=== PATIENT | male | born 1955 | race American Indian/Alaskan Native ===

== ENCOUNTER 2018-09-09 14:55 | Inpatient (IN) | payer MEDICAID, OTHER ==
--- NOTE | 2018-09-09 17:01 | ED PDOC ---
Arrival/HPI - General Chief Complaint: Back Pain Time Seen by Provider: 09/09/18 14:58 Historian: Patient - History of Present Illness Narrative History of Present Illness (Text): 09/09/18 16:58 63-year-old male presents today with a 3-month history of lower back pain. Patient denies any recent trauma or injury. Patient states he has been having the pain that is been gradually increasing for the past 3 months. He has been t aking Tylenol and Advil at home without improvement in the symptoms. Patient states the pain has been going into the legs bilaterally. He denies numbness weakness or tingling in the extremities. He denies saddle paresthesias. He denies fevers or chills. He denies abdominal pain. He denies dysuria or urinary frequency. He denies bladder or bowel incontinence. Patient denies chest pain or shortness of breath. Patient states he has a prior history of back surgery many years ago in [place]. Patient states the pain in the lower back is not midline. He states the pain is on each sides of the back and radiates into the leg to the knees. Past Medical History - Provider Review Nursing Documentation Reviewed: Yes - Travel History Have you recently traveled outside US w/in the past 3 mons?: No - Infectious Disease Hx of Infectious Diseases: None - Psychiatric Hx Substance Use: No - Surgical History Other/Comment: back sx - Anesthesia Hx Anesthesia: Yes Hx Anesthesia Reactions: No Hx Malignant Hyperthermia: No Family/Social History - Physician Review Nursing Documentation Reviewed: Yes Family/Social History: Unknown Family HX Smoking Status: Never Smoked Hx Alcohol Use: No Hx Substance Use: No Allergies/Home Meds Allergies/Adverse Reactions: Allergies No Known Allergies Allergy (Verified 09/09/18 15:05) Home Medications: Home Meds Medication Instructions Recorded Confirmed No Known Home Med 09/09/18 09/09/18 Review of Systems - Review of Systems Constitutional: absent: Fatigue, Fevers Respiratory: absent: SOB, Cough Cardiovascular: absent: Chest Pain, Palpitations Gastrointestinal: absent: Abdominal Pain, Constipation, Diarrhea, Nausea, Vomiting Genitourinary Male: absent: Dysuria, Frequency, Hematuria, Urinary Output Changes Musculoskeletal: Back Pain. absent: Arthralgias, Neck Pain Skin: absent: Rash, Pruritis Neurological: absent: Headache, Dizziness Psychiatric: absent: Anxiety, Depression, Suicidal Ideation Physical Exam Vital Signs Reviewed: Yes Vital Signs Temp Pulse Resp BP Pulse Ox 09/09/18 15:02 98.7 F 80 19 158/83 H 96 Temperature: Afebrile Blood Pressure: Hypertensive Pulse: Regular Respiratory Rate: Normal Appearance: Positive for: Well-Appearing, Non-Toxic, Comfortable Pain Distress: None Mental Status: Positive for: Alert and Oriented X 3 - Systems Exam Head: Present: Atraumatic Mouth: Present: Moist Mucous Membranes Neck: Present: Normal Range of Motion Respiratory/Chest: Present: Clear to Auscultation, Good Air Exchange. No: Respiratory Distress, Accessory Muscle Use Cardiovascular: Present: Regular Rate and Rhythm, Normal S1, S2. No: Murmurs Abdomen: No: Tenderness, Distention, Rebound, Guarding Back: Present: Normal Inspection, Paraspinal Tenderness (+ minimal bilateral paraspinal tenderness). No: CVA Tenderness, Midline Tenderness Upper Extremity: Present: Normal Inspection Lower Extremity: Present: Normal Inspection, NORMAL PULSES, Normal ROM, Temperature Abnormalties, Neurovascularly Intact, Capillary Refill < 2 s. No: CALF TENDERNESS Neurological: Present: GCS=15, Motor Func Grossly Intact, Normal Sensory Function, Gait Normal Skin: Present: Warm, Dry, Normal Color. No: Rashes Psychiatric: Present: Alert, Oriented x 3 Medical Decision Making ED Course and Treatment: 09/09/18 17:04 63yr old male with 3 month history of low back pain radiating to the proximal legs bilaterally. pt given toradol and flexeril. 09/09/18 18:47 received a call from the radiologist dr. Renteria; states CT is concerning for osteomyelitis; she will send CT to [facility] for reading. cbc; wnl cmp: wnl UA: pending blood cultures pending [place] rad reading ct LS spine: There is advanced hypertrophic and degenerative change of the lower lumbar spine with disc space narrowing chronic disc disease at multiple levels. There is grade 1 anterolisthesis at the L4-L5 level with marked narrowing of the disc space at the L4-L5 level. There is anterior angulation of the L4 vertebral body in relation to the L5 vertebral body. There is bone sclerosis of the vertebral body endplates. The possibility of discitis at this level may be considered. Postsurgical changes with laminectomy defects are seen at the L3, L4 and L5 levels. There is advanced arthritic change within the apophyseal joints at the L3-L4 L4-L5 and L5-S1 levels. Impression: Advanced diffuse hypertrophic and degenerative change. Chronic disc disease at multiple levels lumbar spine. Grade 1 anterolisthesis at the L4-L5 level with an irregular appearance of the vertebral body endplates and bone sclerosis involving the endplates. The possibility of discitis at the L4-L5 level may be considered. Postsurgical changes at the L3-L4 and L5 levels. Correlation with plain radiographs and orthopedic consultation recommended. Electronically signed on September 09, 2018 6:53:43 PM EDT by: Donta Eaton M.D., Certified by [facility], Diagnostic Radiology case discussed with dr. trevizo; accepts admission for osteomyelitis and back pain. impression; osteomyelitis of vertebrae vs discitis, back pain Admit to [facility] 09/09/18 19:12 - RAD Interpretation Radiology Orders: 09/09/18 16:04 LUMBAR SPINE W/O CONTRAST [CT] Stat - Medication Orders Current Medication Orders: Discontinued Medications Cyclobenzaprine HCl (Flexeril) 10 mg PO STAT STA Stop: 09/09/18 16:07 Last Admin: 09/09/18 16:37 Dose: Not Given Non-Admin Reason: Patient Refused Ketorolac Tromethamine (Toradol) 60 mg IM STAT STA Stop: 09/09/18 16:06 Last Admin: 09/09/18 16:36 Dose: 60 mg MAR Pain Assessment Document 09/09/18 16:36 [facility] (Rec: 09/09/18 16:37 [id number]) Pain Reassessment Is this a pain reassessment? No Sleep Is patient sleeping during reassessment? No Presence of Pain Presence of Pain Yes Pain Scale Used Protocol: PSCALES Pain Scale Used Numeric Location Pain Location Body Site Back Description Description Constant Intensity of Pain at present 9 Pain Behavior Facial Grimacing Aggravating Factors Changing Position Alleviating Factors/Management Medication Techniques Alleviating Factors Medication IM Administration Charges Document 09/09/18 16:36 [email or web address] (Rec: 09/09/18 16:37 [id number]) Injection Site MAR Injection Site Left Deltoid Charges for Administration # of IM Administrations 1 Disposition/Present on Arrival - Present on Arrival Any Indicators Present on Arrival: No History of DVT/PE: No History of Uncontrolled Diabetes: No Urinary Catheter: No History of Decub. Ulcer: No History Surgical Site Infection Following: None - Disposition Have Diagnosis and Disposition been Completed?: Yes Diagnosis: Back pain, Osteomyelitis, Discitis Disposition: HOSPITALIZED Disposition Time: 18:49 Patient Plan: Admission Patient Problems: Current Active Problems Problem Status Onset Back pain Acute Osteomyelitis Acute Condition: FAIR Referrals: PCP,NO [Primary Care Provider] - Follow up with primary Forms: nuMVC (Palestinian)
[2018-09-09] MEDS ORDERED: Vancomycin 1gm in NS 250ml 1 GM/250 ML BAG IVPB STA (18:15)
[2018-09-09] MEDS ORDERED: Piperacillin/Tazobact 3.375 gm 100 ML IVPB STA (18:18)
[2018-09-09 19:02] LABS: BASO # 0.02 K/mm3 (0.0-2.0); BASO % 0.2 % (0.0-3.0); EOS # 0.1 (0.0-0.7); EOS % 1.7 % (1.5-5.0); LYMPH # 2.3 (1.2-3.4); MEAN CELL VOLUME 85.2 fl (80.0-105.0); MEAN CORPUSCULAR HEMOGLOBIN 28.3 pg (25.0-35.0); MEAN CORPUSCULAR HGB CONC 33.2 g/dl (31.0-37.0); MEAN PLATELET VOLUME 10.5 fl (7.0-11.0); MONO # 0.6 (0.1-0.6); RBC 4.6 10^6/uL (3.5-6.1); RED CELL DISTRIBUTION WIDTH 13.1 % (11.5-14.5); WHITE BLOOD COUNT 8.2 10^3/uL (4.5-11.0)
[2018-09-09 19:09] LABS: INR 1.06; PARTIAL THROMBOPLASTIN TIME 30.7 Seconds (26.9-38.3); PROTHROMBIN TIME 11.8 SECONDS (9.4-12.5)
[2018-09-09 19:12] LABS: ALB/GLOB RATIO 1.2 (1.1-1.8); ALBUMIN 4.1 g/dL (3.0-4.8); ALT/SGPT 26 U/L (7-56); AST/SGOT 22 U/L (17-59); BLOOD UREA NITROGEN 14 mg/dL (7-21); CALCIUM 8.9 mg/dL (8.4-10.5); GFR NON-AFRICAN AMERICAN > 60
[2018-09-09] MEDS ORDERED: Morphine 2 mg/ml ISec IVP PRN (21:29)
--- NOTE | 2018-09-09 22:09 | CP.PCM.HP ---
<Fahad Almazan - Last Filed: 09/10/18 05:21> History of Present Illness - History of Present Illness History of Present Illness: H&P for hospitalist service Chief complaint: Back pain for the past few weeks HPI: Patient is a 63 Burmese Lao speaking male with no significant past medical history presenting with a history of back pain which began a few weeks prior. Patient is currently visiting from [place] to visit his daughter for Ramadan. Patient states the pain is in his lower back and extends to his thighs bilaterally. Patient states the pain is improved when he leans forwards however is exacerbated with standing. Rates the pain 8/10 without any associated urinary/bowel incontinence, saddle anesthesia, numbness or tingling in lower extremities. Patient also denies fevers, chills, dizziness, loss of balance, headaches, weight loss, night sweats, cough. Patient history was obtained with Dr. Snider who speaks kiswahili. PMD: In [place] Allergies: NKDA Surgical Hx: denies Family Hx: non contributory Medications: denies Present on Admission - Present on Admission Any Indicators Present on Admission: No Review of Systems - Review of Systems All systems: reviewed and no additional remarkable complaints except (as mentioned in HPI) Past Patient History - Infectious Disease Hx of Infectious Diseases: None - Past Social History Smoking Status: Never Smoked - PSYCHIATRIC Hx Substance Use: No - SURGICAL HISTORY Other/Comment: back sx - ANESTHESIA Hx Anesthesia: Yes Hx Anesthesia Reactions: No Hx Malignant Hyperthermia: No Meds Allergies/Adverse Reactions: Allergies Allergy/AdvReac Type Severity Reaction Status Date / Time No Known Allergies Allergy Verified 09/09/18 15:05 Physical Exam - Constitutional Appears: Non-toxic, No Acute Distress - Head Exam Head Exam: ATRAUMATIC, NORMAL INSPECTION, NORMOCEPHALIC - Eye Exam Eye Exam: EOMI, Normal appearance - ENT Exam ENT Exam: Mucous Membranes Moist - Neck Exam Neck exam: Positive for: Normal Inspection - Respiratory Exam Respiratory Exam: Clear to Auscultation Bilateral, NORMAL BREATHING PATTERN - Cardiovascular Exam Cardiovascular Exam: REGULAR RHYTHM, +S1, +S2 - GI/Abdominal Exam GI & Abdominal Exam: Normal Bowel Sounds, Soft - Extremities Exam Extremities exam: Positive for: normal inspection - Back Exam Back exam: NORMAL INSPECTION - Neurological Exam Neurological exam: Alert, CN II-XII Intact, Oriented x3 - Psychiatric Exam Psychiatric exam: Normal Affect, Normal Mood - Skin Skin Exam: Normal Color, Warm Results - Vital Signs Recent Vital Signs: Last Vital Signs Temp 98.7 F 09/09/18 15:02 Pulse 80 09/09/18 15:02 Resp 19 09/09/18 15:02 BP 158/83 H 09/09/18 15:02 Pulse Ox 96 09/09/18 15:02 - Labs Result Diagrams: 09/09/18 18:54 09/09/18 18:54 Labs: Laboratory Results - last 24 hr 09/09/18 09/09/18 09/09/18 18:54 18:54 18:54 WBC 8.2 RBC 4.60 Hgb 13.0 L Hct 39.2 L MCV 85.2 MCH 28.3 MCHC 33.2 RDW 13.1 Plt Count 243 MPV 10.5 Neut % (Auto) 63.1 Lymph % (Auto) 28.0 [place] % (Auto) 7.0 H Eos % (Auto) 1.7 Baso % (Auto) 0.2 Lymph # (Auto) 2.3 [place] # (Auto) 0.6 Eos # (Auto) 0.1 Baso # (Auto) 0.02 Absolute Neuts (auto) 5.15 PT 11.8 INR 1.06 APTT 30.7 Sodium 144 Potassium 4.4 Chloride 106 Carbon Dioxide 26 Anion Gap 16 BUN 14 Creatinine 0.9 Est GFR ( Amer) > 60 Est GFR (Non-Af Amer) > 60 Random Glucose 96 Calcium 8.9 Total Bilirubin 0.7 AST 22 ALT 26 Alkaline Phosphatase 78 Total Protein 7.6 Albumin 4.1 Globulin 3.5 Albumin/Globulin Ratio 1.2 Assessment & Plan - Assessment and Plan (Free Text) Assessment: 63 tristanian male with no significant past medical history presenting with back pain found to have possible discitis at L4-L5 Plan: Back pain secondary to discitis vs. lumbar stenosis -ESR, CRP -Patient received zosyn and vanc in ED -Blood and urine cultures received -Continue with pain management for now: flexiril, lidocaine, morphine -Consult infectious disease -Lumbar Spine CT reveals discitis in L4-L5 as per ED staff Radiologist stated osteomyelitis is a possibility, will await official read -Afebrile, no leukocytosis present will continue to monitor off antibiotics at this time Case discussed with Dr. Snider <Rachna Snider - Last Filed: 09/10/18 19:48> Results - Vital Signs Recent Vital Signs: Last Vital Signs Temp 98.2 F 09/10/18 08:32 Pulse 87 09/10/18 08:32 Resp 18 09/10/18 08:32 BP 149/73 09/10/18 08:32 Pulse Ox 100 09/10/18 08:32 - Labs Result Diagrams: 09/10/18 05:15 09/10/18 05:15 Labs: Laboratory Results - last 24 hr 09/09/18 09/09/18 09/09/18 18:54 18:54 18:54 WBC RBC Hgb Hct MCV MCH MCHC RDW Plt Count MPV Neut % (Auto) Lymph % (Auto) [place] % (Auto) Eos % (Auto) Baso % (Auto) Lymph # (Auto) [place] # (Auto) Eos # (Auto) Baso # (Auto) Absolute Neuts (auto) ESR 30 H Sodium Potassium Chloride Carbon Dioxide Anion Gap BUN Creatinine Est GFR ( Amer) Est GFR (Non-Af Amer) Random Glucose Calcium Phosphorus 3.1 Magnesium 2.1 Total Bilirubin AST ALT Alkaline Phosphatase C-Reactive Protein C-React Prot High Sens 7.54 H Total Protein Albumin Globulin Albumin/Globulin Ratio 09/10/18 09/10/18 09/10/18 05:15 05:15 07:00 WBC 7.7 RBC 4.20 Hgb 11.8 L Hct 35.9 L MCV 85.5 MCH 28.1 MCHC 32.9 RDW 13.2 Plt Count 220 MPV 11.2 H Neut % (Auto) 61.5 Lymph % (Auto) 26.7 [place] % (Auto) 8.9 H Eos % (Auto) 2.6 Baso % (Auto) 0.3 Lymph # (Auto) 2.1 [place] # (Auto) 0.7 H Eos # (Auto) 0.2 Baso # (Auto) 0.02 Absolute Neuts (auto) 4.75 ESR Sodium 142 Potassium 4.1 Chloride 106 Carbon Dioxide 28 Anion Gap 12 BUN 19 Creatinine 1.0 Est GFR ( Amer) > 60 Est GFR (Non-Af Amer) > 60 Random Glucose 90 Calcium 8.4 Phosphorus Magnesium Total Bilirubin 0.4 AST 22 ALT 20 Alkaline Phosphatase 63 C-Reactive Protein 11.20 H C-React Prot High Sens Total Protein 6.6 Albumin 3.5 Globulin 3.1 Albumin/Globulin Ratio 1.1 Attending/Attestation - Attestation I have personally seen and examined this patient.: Yes I have fully participated in the care of the patient.: Yes I have reviewed all pertinent clinical information: Yes Notes (Text): 09/10/18 19:47 Seen and examined. Has prgressive LBP for 3 month worsens with movement, but resolves with rest ? spinal stenosis S/S in addition to Discitis seen on CT as above.
[2018-09-10 00:01] VITALS: BMI 40.7
[2018-09-10 06:58] LABS: ALB/GLOB RATIO 1.1 (1.1-1.8); ALBUMIN 3.5 g/dL (3.0-4.8); ALT/SGPT 20 U/L (7-56); AST/SGOT 22 U/L (17-59); BLOOD UREA NITROGEN 19 mg/dL (7-21); CALCIUM 8.4 mg/dL (8.4-10.5); GFR NON-AFRICAN AMERICAN > 60
[2018-09-10 07:09] LABS: BASO # 0.02 K/mm3 (0.0-2.0); BASO % 0.3 % (0.0-3.0); EOS # 0.2 (0.0-0.7); EOS % 2.6 % (1.5-5.0); HEMOGLOBIN 11.8 g/dL (14.0-18.0); LYMPH # 2.1 (1.2-3.4); LYMPH % 26.7 % (22.0-35.0); MEAN CELL VOLUME 85.5 fl (80.0-105.0); MEAN CORPUSCULAR HEMOGLOBIN 28.1 pg (25.0-35.0); MEAN CORPUSCULAR HGB CONC 32.9 g/dl (31.0-37.0); MEAN PLATELET VOLUME 11.2 fl (7.0-11.0); MONO # 0.7 (0.1-0.6); MONO % 8.9 % (1.0-6.0); RBC 4.2 10^6/uL (3.5-6.1); RED CELL DISTRIBUTION WIDTH 13.2 % (11.5-14.5); WHITE BLOOD COUNT 7.7 10^3/uL (4.5-11.0)
--- NOTE | 2018-09-10 09:38 | CON ---
DATE OF CONSULTATION: 09/10/2018 The patient is in bed. CHIEF COMPLAINT: Back pain times several weeks. HISTORY OF PRESENT ILLNESS: This is a 63-year-old male, who is originally from [place], who speaks Telugu, and states that he has been fine. He has been having back pain, lower back, radiation down his leg. He denies any fevers, any chills, and denies any chest pain, shortness of , pain, or cough. No weight loss. No abdominal pain, diarrhea, or constipation, and he says that the pain radiates down to his legs. PAST MEDICAL HISTORY: Noncontributory except for morbid obesity with a BMI of 41. PAST SURGICAL HISTORY: The patient did have back surgery years ago. ALLERGIES: HE HAS NO KNOWN ALLERGIES. SOCIAL HISTORY: He does not smoke or drink. MEDICATIONS: He takes no medications at home. PHYSICAL EXAMINATION: GENERAL: He is in bed, in no acute distress. He is ambulating. No local focal weakness. VITAL SIGNS: The patient's temperature is 98, heart rate of 80, respiratory rate of 19, blood pressure is 149/73. HEENT: Examination of HEENT is unremarkable. NECK: Supple. LUNGS: Have decreased breath sounds. HEART: Normal S1, S2. ABDOMEN: Soft, nontender. MUSCULOSKELETAL: Examination of back, there is no focal tenderness, point tenderness at all. NEUROLOGIC: The patient is awake and alert. Motor function is 5/5 and no sensory deficiencies and no motor deficiencies. LABORATORY DATA: Laboratory examination reveals a white count of 8.2, hemoglobin of 13, sed rate is 30, platelets of 243. Chemistries are all entirely normal LFTs and liver, and normal bicarb. The patient did have a lumbar CT, which is vertebral osteomyelitis and diskitis. ASSESSMENT AND PLAN: This is a 63-year-old male from [place], who states he has never had exposure to tuberculosis. He speaks Telugu, now presenting with vertebral osteomyelitis and diskitis by preliminary report and on the CAT scan, as per nursing, would hold off any antibiotics as he has no focal findings, no fevers and chills, and no symptoms of sepsis. We will order an MRI of the spine. CAT scan of the abdomen and pelvis, rule out any psoas muscle involvement and consider Loki's disease, tuberculosis. We will look at the chest x-ray or CAT scan of the chest, and we will order culture results and HIV test and QuantiFERON testing, blood cultures, sed rate, and C-reactive protein. Recommend Dr. Christopher Keys, invasive radiology, to review the CAT scan and the MRI once it is done for possible invasive radiology biopsy, and we will follow with you. Lobo Webber MD
[2018-09-10] MEDS: Lidocaine 5% Patch TD SCH (10:44)
[2018-09-10] MEDS ORDERED: Iohexol 350 MG/100 ML VIAL ONE (11:10)
--- NOTE | 2018-09-10 11:57 | CT ---
Date of service: 09/10/2018 PROCEDURE: CT Chest, Abdomen and Pelvis with and without intravenous contrast HISTORY: r/o TB COMPARISON: None available. TECHNIQUE: IV dose administered: 100 cc of Omni 350 Radiation dose: Total exam DLP = 3024.18 mGy-cm. This CT exam was performed using one or more of the following dose reduction techniques: Automated exposure control, adjustment of the mA and/or kV according to patient size, and/or use of iterative reconstruction technique. FINDINGS: CT CHEST WITH CONTRAST: LUNGS: Clear. No nodule, mass or consolidation. MEDIASTINUM: Unremarkable. Normal caliber aorta and pulmonary arterial trunk. No aortic dissection. Normal size heart. LYMPH NODES: Unremarkable. PLEURA: Unremarkable. No pneumothorax. No pleural fluid. BONES: Unremarkable. OTHER FINDINGS: None. CT ABDOMEN AND PELVIS: LIVER: Unremarkable. No gross lesion or ductal dilatation. GALLBLADDER AND BILE DUCTS: Unremarkable. PANCREAS: Unremarkable. No gross lesion or ductal dilatation. SPLEEN: Unremarkable. ADRENALS: Unremarkable. No mass. KIDNEYS AND URETERS: There is a large staghorn calculus in the right kidney which conforms to the shape of the renal collecting system in the lower pole. There is no hydronephrosis. The left kidney is unremarkable VASCULATURE: No aortic atherosclerotic calcification or mural plaque present. Unremarkable. No aortic aneurysm. BOWEL: Unremarkable. No obstruction. No gross mural thickening. APPENDIX: Normal appendix. PERITONEUM: Unremarkable. No free fluid. No free air. LYMPH NODES: Unremarkable. No enlarged lymph nodes. BLADDER: Unremarkable. REPRODUCTIVE: Unremarkable. BONES: Severe degenerative changes are seen in the lower lumbar spine OTHER FINDINGS: None. IMPRESSION: No acute findings. No evidence of tuberculosis
--- NOTE | 2018-09-10 13:39 | CT ---
Date of service: 09/09/2018 PROCEDURE: CT Lumbar Spine without contrast HISTORY: back pain x 3 months COMPARISON: None available. TECHNIQUE: Axial computed tomography images were obtained of the lumbar spine without the use of intravenous contrast. Coronal and sagittal reformatted images were created and reviewed. Radiation dose: Total exam DLP = 2065.42 mGy-cm. This CT exam was performed using one or more of the following dose reduction techniques: Automated exposure control, adjustment of the mA and/or kV according to patient size, and/or use of iterative reconstruction technique. FINDINGS: VERTEBRAE: Unremarkable. No fracture. Normal alignment. DISCS/SPINAL CANAL/NEURAL FORAMINA: L1-2: Unremarkable. L2-3: Severe disc and facet degeneration with mild stenosis L3-4: Disc degeneration. Previous laminectomy. L4-5: Severe degenerative changes with anterior subluxation of L4 over L5. Previous laminectomy. Severe facet arthropathy. L5-S1: Unremarkable. PARASPINAL SOFT TISSUES: Unremarkable. OTHER FINDINGS: The report concurs with the preliminary [facility] report IMPRESSION: Severe degenerative changes in lower lumbar spine. Previous laminectomy. No acute compression fracture
--- NOTE | 2018-09-10 14:23 | CP.PCM.PN ---
<Carmel Atkinson - Last Filed: 09/10/18 14:19> Subjective - Date & Time of Evaluation Date of Evaluation: 09/10/18 Time of Evaluation: 10:30 - Subjective Subjective: Carmel Atkinson PGY1 Medicine Progress Note for Hospital Patient seen and examined at bedside this morning. No acute events reported overnight. Presently, patient denies any back pain and endorses left hip pain radiating down his left leg. Denies fevers, CP, SOB, nausea, vomiting, numbness, tingling, weakness and urinary complaints. Objective - Vital Signs/Intake and Output Vital Signs (last 24 hours): Temp Pulse Resp BP Pulse Ox 98.2 F 87 18 149/73 100 09/10/18 08:32 09/10/18 08:32 09/10/18 08:32 09/10/18 08:32 09/10/18 08:32 Intake and Output: 09/10/18 09/10/18 06:59 18:59 Intake Total 0 Balance 0 - Medications Medications: Current Medications Cyclobenzaprine HCl (Flexeril) 10 mg PO TID [facility] Last Admin: 09/10/18 10:58 Dose: Not Given Lidocaine (Lidoderm) 1 ea TD DAILY [facility] Last Admin: 09/10/18 10:44 Dose: 1 ea Morphine Sulfate (Morphine) 1 mg IVP Q4H PRN PRN Reason: Pain, severe (8-10) - Labs Labs: 09/10/18 05:15 09/10/18 05:15 PT 11.8 SECONDS (9.4-12.5) 09/09/18 18:54 INR 1.06 09/09/18 18:54 APTT 30.7 Seconds (26.9-38.3) 09/09/18 18:54 Physical Exam - Constitutional Appears: Non-toxic, No Acute Distress - Head Exam Head Exam: ATRAUMATIC, NORMAL INSPECTION, NORMOCEPHALIC - Eye Exam Eye Exam: EOMI, Normal appearance - ENT Exam ENT Exam: Mucous Membranes Moist - Neck Exam Neck exam: Positive for: Normal Inspection - Respiratory Exam Respiratory Exam: Clear to Auscultation Bilateral, NORMAL BREATHING PATTERN - Cardiovascular Exam Cardiovascular Exam: REGULAR RHYTHM, +S1, +S2 - GI/Abdominal Exam GI & Abdominal Exam: Normal Bowel Sounds, Soft. absent: guarding, rigidity - Extremities Exam Extremities exam: Positive for: normal inspection. Moving all extremities spontaneously - Back Exam Back exam: NORMAL INSPECTION. L4-L5 tenderness noted with deep palpation - Neurological Exam Neurological exam: Alert, CN II-XII Intact, Oriented x3. No focal motor or sensory deficits appreciated - Skin Skin Exam: Normal Color, Warm Assessment and Plan - Assessment and Plan (Free Text) Assessment: 63 montenegrin male with no significant past medical history presenting with back pain. Plan: Left Hip Pain -consider discitis vs. lumbar stenosis vs severe degenerative changes -afebrile, no WBC count noted -ESR elevated at 30 -CRP elevated at 11.2 -monitor off of antibiotics as per ID -Blood and urine cultures received -Continue flexiril, lidocaine, morphine -ID on consult, Dr. Puentes -MRI spinal cancal lumbar pending -Lumbar Spine CT shows severe degenerative changes in lower lumbar spine, p revious laminectomy. No acute compression fracture -CTAP shows no acute findings, no evidence of TB -HIV, quantiferon pending Patient seen and case discussed with attending, Dr. Carl <Axel Carl - Last Filed: 09/11/18 13:07> Objective - Vital Signs/Intake and Output Vital Signs (last 24 hours): Temp Pulse Resp BP Pulse Ox 98.5 F 77 20 156/80 H 98 09/11/18 08:20 09/11/18 08:20 09/11/18 08:20 09/11/18 08:20 09/11/18 08:20 Intake and Output: 09/11/18 09/11/18 06:59 18:59 Intake Total 0 Balance 0 - Medications Medications: Current Medications Cyclobenzaprine HCl (Flexeril) 10 mg PO TID [facility] Last Admin: 09/11/18 10:18 Dose: Not Given Lidocaine (Lidoderm) 1 ea TD DAILY [facility] Last Admin: 09/11/18 10:15 Dose: 1 ea Morphine Sulfate (Morphine) 1 mg IVP Q4H PRN PRN Reason: Pain, severe (8-10) - Labs Labs: 09/11/18 05:00 09/11/18 05:00 PT 11.8 SECONDS (9.4-12.5) 09/09/18 18:54 INR 1.06 09/09/18 18:54 APTT 30.7 Seconds (26.9-38.3) 09/09/18 18:54 Attending/Attestation - Attestation I have personally seen and examined this patient.: Yes I have fully participated in the care of the patient.: Yes I have reviewed all pertinent clinical information, including history, physical exam and plan: Yes Notes (Text): 09/11/18 13:07 Medical record note made by the resident after discussion with my direction and input after the patient was personally seen and examined by me. I have reviewed the chart and agree that the record accurately reflects by personal performance of the history, physical exam, data review, and medical decision-making, in the course for the patient. I have also personally directed the plan of care.
[2018-09-10] MEDS ORDERED: Gadodiamide 287 MG/ML VIAL (15ML) IV ONE (15:25)
[2018-09-11 06:50] LABS: BASO # 0.02 K/mm3 (0.0-2.0); BASO % 0.3 % (0.0-3.0); EOS # 0.2 (0.0-0.7); EOS % 3.8 % (1.5-5.0); HEMOGLOBIN 12.2 g/dL (14.0-18.0); LYMPH % 31.8 % (22.0-35.0); MEAN CELL VOLUME 85.6 fl (80.0-105.0); MEAN CORPUSCULAR HEMOGLOBIN 28.7 pg (25.0-35.0); MEAN CORPUSCULAR HGB CONC 33.5 g/dl (31.0-37.0); MEAN PLATELET VOLUME 10.8 fl (7.0-11.0); MONO # 0.5 (0.1-0.6); MONO % 7.9 % (1.0-6.0); RBC 4.25 10^6/uL (3.5-6.1); RED CELL DISTRIBUTION WIDTH 13.3 % (11.5-14.5); WHITE BLOOD COUNT 6.3 10^3/uL (4.5-11.0)
[2018-09-11 06:53] LABS: ALB/GLOB RATIO 1.1 (1.1-1.8); ALBUMIN 3.7 g/dL (3.0-4.8); ALT/SGPT 22 U/L (7-56); AST/SGOT 23 U/L (17-59); BLOOD UREA NITROGEN 17 mg/dL (7-21); CALCIUM 8.9 mg/dL (8.4-10.5); GFR NON-AFRICAN AMERICAN > 60
[2018-09-11] MEDS: Lidocaine 5% Patch TD SCH (10:15)
[2018-09-11 10:42] LABS: URINE BILIRUBIN NEGATIVE (NEGATIVE); URINE BLOOD LARGE (NEGATIVE); URINE GLUCOSE (UA) NEGATIVE (NEGATIVE); URINE LEUKOCYTE ESTERASE TRACE Leu/uL (NEGATIVE); URINE PROTEIN 30 mg/dL (<30 mg/dL); URINE UROBILINOGEN 0.2 E.U./dL (<1 E.U./dL)
[2018-09-11 10:49] LABS: URINE APPEARANCE SL CLOUDY (CLEAR); URINE COLOR YELLOW (YELLOW)
[2018-09-11 11:03] LABS: URINE RBC TNTC /hpf (0-2)
--- NOTE | 2018-09-11 11:03 | PN ---
DATE: 09/11/2018 SUBJECTIVE: The patient is in seen earlier, still with back pain. No fevers, no chills. No weakness. His motor function is fine. His sensation is fine. PHYSICAL EXAMINATION VITAL SIGNS: Temperature is 98, blood pressure is 150/60, respiratory rate of 18. HEENT: Unremarkable. NECK: Supple. LUNGS: Have decreased breath sounds. HEART: Normal S1, S2. ABDOMEN: Soft, nontender. LABORATORY EXAMINATION: Reveals a white count of 6.3, hemoglobin of 12. Coagulation is noted. Chemistries are noted with a C-reactive protein of 11. Microbiology reveals the blood cultures are negative. The patient had a CAT scan of the abdomen and pelvis and CAT scan of the chest. CAT of the chest is clear. No nodules, no masses, no consolidation. CAT scan of the abdomen and pelvis is unremarkable. No evidence of psoas muscle abscess. There is a large staghorn calculus in the right kidney conforms to the shape of the renal collecting system . There is no hydronephrosis. The left kidney is unremarkable. The patient did have an MRI of the spine, the results are pending. The patient's urinalysis is not done. We will order a stat urinalysis and urine culture, recommend a Urology consultation regarding the staghorn calculus. ASSESSMENT AND PLAN: This is a 63-year-old male who is originally from [place] who is admitted now with back pain and questionable vertebral osteomyelitis and diskitis by the CT. There is a staghorn calculus which may be contributing to his back pain. Recommend a Urology consultation, awaiting for results of the MRI of the spine and Dr. Christopher Keys's input regarding the CAT scan of the lumbar spine and the possibility of IR directed vertebral and disc biopsy. final reading of the CAT scan shows as previous laminectomy and degenerative changes. We will check on the urinalysis, Urology consultation, results of the MRI of the spine, from Dr. Christopher Keys, no antibiotics at this point, also order a stat urinalysis and urine culture. Continue to keep the patient off of antibiotics. Lobo Webber MD
[2018-09-11 11:04] LABS: URINE BACTERIA MANY /hpf
[2018-09-11 11:05] LABS: URINE AMORPHOUS SEDIMENT FEW /hpf
--- NOTE | 2018-09-11 12:18 | CP.PCM.PN ---
<Carmel Atkinson - Last Filed: 09/11/18 12:13> Subjective - Date & Time of Evaluation Date of Evaluation: 09/11/18 Time of Evaluation: 08:45 - Subjective Subjective: Carmel Atkinson PGY1 Medicine Progress Note for Hospital Patient seen and examined at bedside this morning. No acute events reported overnight. Patient denies back pain, CP, SOB, fevers, urinary complaints, urinary burning, numbness, tingling, abdominal pain, nausea and vomiting. Objective - Vital Signs/Intake and Output Vital Signs (last 24 hours): Temp Pulse Resp BP Pulse Ox 98.5 F 77 20 156/80 H 98 09/11/18 08:20 09/11/18 08:20 09/11/18 08:20 09/11/18 08:20 09/11/18 08:20 Intake and Output: 09/11/18 09/11/18 06:59 18:59 Intake Total 0 Balance 0 - Medications Medications: Current Medications Cyclobenzaprine HCl (Flexeril) 10 mg PO TID [facility] Last Admin: 09/11/18 10:18 Dose: Not Given Lidocaine (Lidoderm) 1 ea TD DAILY [facility] Last Admin: 09/11/18 10:15 Dose: 1 ea Morphine Sulfate (Morphine) 1 mg IVP Q4H PRN PRN Reason: Pain, severe (8-10) - Labs Labs: 09/11/18 05:00 09/11/18 05:00 PT 11.8 SECONDS (9.4-12.5) 09/09/18 18:54 INR 1.06 09/09/18 18:54 APTT 30.7 Seconds (26.9-38.3) 09/09/18 18:54 Physical Exam - Constitutional Appears: Non-toxic, No Acute Distress - Head Exam Head Exam: ATRAUMATIC, NORMAL INSPECTION, NORMOCEPHALIC - Eye Exam Eye Exam: EOMI, Normal appearance - ENT Exam ENT Exam: Mucous Membranes Moist - Neck Exam Neck exam: Positive for: Normal Inspection - Respiratory Exam Respiratory Exam: Clear to Auscultation Bilateral, NORMAL BREATHING PATTERN - Cardiovascular Exam Cardiovascular Exam: REGULAR RHYTHM, +S1, +S2 - GI/Abdominal Exam GI & Abdominal Exam: Normal Bowel Sounds, Soft. absent: guarding, rigidity - Extremities Exam Extremities exam: Positive for: normal inspection. Moving all extremities spontaneously - Back Exam Back exam: NORMAL INSPECTION. L4-L5 tenderness noted with deep palpation - Neurological Exam Neurological exam: Alert, CN II-XII Intact, Oriented x3. No focal motor or sensory deficits appreciated - Skin Skin Exam: Normal Color, Warm Assessment and Plan - Assessment and Plan (Free Text) Assessment: 63 [place] male with no significant past medical history presenting with back pain. Plan: Left Hip Pain -consider lumbar stenosis vs severe degenerative changes -afebrile, no WBC count noted -ESR elevated at 30 -CRP elevated at 11.2 -monitor off of antibiotics as per ID -Continue flexiril, lidocaine, morphine -ID on consult, Dr. Puentes -lumbar spine MRI pending final read -Lumbar Spine CT shows severe degenerative changes in lower lumbar spine, previous laminectomy. No acute compression fracture -CTAP shows no acute findings, no evidence of TB -HIV, quantiferon pending Right Staghorn calculus -urology on consult, Dr. Jeffries E -denies any urinary complaints at this time -urine culture -blood culture negative for 24 hours Patient seen and case discussed with attending, Dr. Carl <Axel Carl - Last Filed: 09/11/18 13:02> Objective - Vital Signs/Intake and Output Vital Signs (last 24 hours): Temp Pulse Resp BP Pulse Ox 98.5 F 77 20 156/80 H 98 09/11/18 08:20 09/11/18 08:20 09/11/18 08:20 09/11/18 08:20 09/11/18 08:20 Intake and Output: 09/11/18 09/11/18 06:59 18:59 Intake Total 0 Balance 0 - Medications Medications: Current Medications Cyclobenzaprine HCl (Flexeril) 10 mg PO TID [facility] Last Admin: 09/11/18 10:18 Dose: Not Given Lidocaine (Lidoderm) 1 ea TD DAILY [facility] Last Admin: 09/11/18 10:15 Dose: 1 ea Morphine Sulfate (Morphine) 1 mg IVP Q4H PRN PRN Reason: Pain, severe (8-10) - Labs Labs: 09/11/18 05:00 09/11/18 05:00 PT 11.8 SECONDS (9.4-12.5) 09/09/18 18:54 INR 1.06 09/09/18 18:54 APTT 30.7 Seconds (26.9-38.3) 09/09/18 18:54 Attending/Attestation - Attestation I have personally seen and examined this patient.: Yes I have fully participated in the care of the patient.: Yes I have reviewed all pertinent clinical information, including history, physical exam and plan: Yes Notes (Text): 09/11/18 13:02 Medical record note made by the resident after discussion with my direction and input after the patient was personally seen and examined by me. I have reviewed the chart and agree that the record accurately reflects by personal performance of the history, physical exam, data review, and medical decision-making, in the course for the patient. I have also personally directed the plan of care. 63 [place] male with no significant past medical history presenting with back pain was admitted as preliminary CT lumber was concerning for discitis, however official read of Lumbar Spine CT shows severe degenerative changes in lower lumbar spine, previous laminectomy. No acute compression fracture. It does showed large staghorn stone in right kidney. MRI of back reading is pending, no need for antibiotics as per ID if MRI is negative. Urology is consulted for staghorn stone.
--- NOTE | 2018-09-11 13:33 | MRI ---
Date of service: 09/10/2018 PROCEDURE: MR LUMBAR SPINE WITH AND WITHOUT CONTRAST HISTORY: r/o ostemyelitis COMPARISON: None available. TECHNIQUE: Multiecho multiplanar sequences were performed through the lumbar spine with and without the use of intravenous contrast. 15 cc of Omniscan FINDINGS: Vertebral body heights are preserved. Marrow signal unremarkable. Conus medullaris unremarkable at the level of 12 Paraspinal soft tissues are unremarkable. No abnormal enhancement. T12-L1: No disc herniation, spinal canal stenosis or neural foraminal narrowing. L1-2: No disc herniation, spinal canal stenosis or neural foraminal narrowing. L2-3: Severe facet arthropathy and disc bulging with severe stenosis at L2-3 L3-4: Severe facet arthropathy. Laminectomy L4-5: Severe disc degeneration and anterior subluxation and tilt of L4. There has been laminectomy at this level. There is no evidence of discitis or osteomyelitis. L5-S1: No disc herniation, spinal canal stenosis or neural foraminal narrowing. OTHER FINDINGS: None. IMPRESSION: Severe facet arthropathy and disc bulging with severe stenosis at L2-3 Severe disc degeneration and anterior subluxation and tilt of L4. There has been laminectomy at this level. There is no evidence of discitis or osteomyelitis.
[2018-09-12 07:05] LABS: ALB/GLOB RATIO 1.1 (1.1-1.8); ALBUMIN 3.7 g/dL (3.0-4.8); ALT/SGPT 24 U/L (7-56); AST/SGOT 23 U/L (17-59); BLOOD UREA NITROGEN 19 mg/dL (7-21); CALCIUM 8.6 mg/dL (8.4-10.5); GFR NON-AFRICAN AMERICAN > 60
[2018-09-12 07:09] LABS: BASO # 0.03 K/mm3 (0.0-2.0); BASO % 0.4 % (0.0-3.0); EOS # 0.2 (0.0-0.7); EOS % 2.9 % (1.5-5.0); LYMPH # 2.5 (1.2-3.4); LYMPH % 32.2 % (22.0-35.0); MEAN CELL VOLUME 85.3 fl (80.0-105.0); MEAN CORPUSCULAR HEMOGLOBIN 27.9 pg (25.0-35.0); MEAN CORPUSCULAR HGB CONC 32.7 g/dl (31.0-37.0); MEAN PLATELET VOLUME 10.7 fl (7.0-11.0); MONO # 0.5 (0.1-0.6); MONO % 6.1 % (1.0-6.0); RBC 4.3 10^6/uL (3.5-6.1); RED CELL DISTRIBUTION WIDTH 13.3 % (11.5-14.5); WHITE BLOOD COUNT 7.9 10^3/uL (4.5-11.0)
[2018-09-12] MEDS: Lidocaine 5% Patch TD SCH (10:56)
--- NOTE | 2018-09-12 17:19 | CP.PCM.DIS ---
<Sixto Garcia - Last Filed: 09/12/18 17:09> Provider - Provider Date of Admission: 09/09/18 18:45 Attending physician: Swati Carlton MD Primary care physician: NO PRIMARY CARE PROVIDER Consults: 09/10/18 01:06 Infectious Disease Consult Routine Comment: Consulting Provider: Lboo Webber Consulting Physician: Lobo Webber Reason for Consult: discitis, r/o osteomyelitis 09/11/18 12:13 Physician Consult Routine Comment: Consulting Provider: Kvng Jeffries Consulting Physician: Kvng Jeffries Reason for Consult: right staghorn calculus Time Spent in preparation of Discharge (in minutes): 60 Hospital Course - Lab Results Lab Results: Micro Results 09/11/18 10:20 Urine Random Urine Culture - Final No Growth (<1,000 CFU/ML) 09/09/18 20:09 Blood Blood Culture - Preliminary NO GROWTH AFTER 48 HOURS 09/09/18 18:54 Blood Blood Culture - Preliminary NO GROWTH AFTER 48 HOURS Most Recent Lab Values WBC 7.9 10^3/uL (4.5-11.0) D 09/12/18 06:30 RBC 4.30 10^6/uL (3.5-6.1) 09/12/18 06:30 Hgb 12.0 g/dL (14.0-18.0) L 09/12/18 06:30 Hct 36.7 % (42.0-52.0) L 09/12/18 06:30 MCV 85.3 fl (80.0-105.0) 09/12/18 06:30 MCH 27.9 pg (25.0-35.0) 09/12/18 06:30 MCHC 32.7 g/dl (31.0-37.0) 09/12/18 06:30 RDW 13.3 % (11.5-14.5) 09/12/18 06:30 Plt Count 243 10^3/uL (120.0-450.0) 09/12/18 06:30 MPV 10.7 fl (7.0-11.0) 09/12/18 06:30 Neut % (Auto) 58.4 % (50.0-68.0) 09/12/18 06:30 Lymph % (Auto) 32.2 % (22.0-35.0) 09/12/18 06:30 Gooding % (Auto) 6.1 % (1.0-6.0) H 09/12/18 06:30 Eos % (Auto) 2.9 % (1.5-5.0) 09/12/18 06:30 Baso % (Auto) 0.4 % (0.0-3.0) 09/12/18 06:30 Lymph # (Auto) 2.5 (1.2-3.4) 09/12/18 06:30 Gooding # (Auto) 0.5 (0.1-0.6) 09/12/18 06:30 Eos # (Auto) 0.2 (0.0-0.7) 09/12/18 06:30 Baso # (Auto) 0.03 K/mm3 (0.0-2.0) 09/12/18 06:30 Absolute Neuts (auto) 4.60 (1.4-6.5) 09/12/18 06:30 ESR 30 mm/hr (0.00-15.0) H 09/09/18 18:54 PT 11.8 SECONDS (9.4-12.5) 09/09/18 18:54 INR 1.06 09/09/18 18:54 APTT 30.7 Seconds (26.9-38.3) 09/09/18 18:54 Sodium 142 mmol/L (132-148) 09/12/18 06:30 Potassium 4.2 mmol/L (3.6-5.0) 09/12/18 06:30 Chloride 104 mmol/L (98-107) 09/12/18 06:30 Carbon Dioxide 30 mmol/L (21-33) 09/12/18 06:30 Anion Gap 11 (10-20) 09/12/18 06:30 BUN 19 mg/dL (7-21) 09/12/18 06:30 Creatinine 1.2 mg/dl (0.8-1.5) 09/12/18 06:30 Est GFR ( Amer) > 60 09/12/18 06:30 Est GFR (Non-Af Amer) > 60 09/12/18 06:30 Random Glucose 108 mg/dL (70-110) 09/12/18 06:30 Calcium 8.6 mg/dL (8.4-10.5) 09/12/18 06:30 Phosphorus 3.1 mg/dL (2.5-4.5) 09/09/18 18:54 Magnesium 2.1 mg/dL (1.7-2.2) 09/09/18 18:54 Total Bilirubin 0.4 mg/dL (0.2-1.3) 09/12/18 06:30 AST 23 U/L (17-59) 09/12/18 06:30 ALT 24 U/L (7-56) 09/12/18 06:30 Alkaline Phosphatase 66 U/L (38-126) 09/12/18 06:30 C-Reactive Protein 11.20 mg/L (0.0-9.9) H 09/10/18 07:00 C-React Prot High Sens 7.54 mg/L (1.00-3.00) H 09/09/18 18:54 Total Protein 6.9 g/dL (5.8-8.3) 09/12/18 06:30 Albumin 3.7 g/dL (3.0-4.8) 09/12/18 06:30 Globulin 3.2 gm/dL 09/12/18 06:30 Albumin/Globulin Ratio 1.1 (1.1-1.8) 09/12/18 06:30 Urine Color Yellow (YELLOW) 09/11/18 10:20 Urine Appearance Sl cloudy (CLEAR) 09/11/18 10:20 Urine pH 6.0 (4.7-8.0) 09/11/18 10:20 Ur Specific Jenkins >= 1.030 (1.005-1.035) 09/11/18 10:20 Urine Protein 30 mg/dL (<30 mg/dL) H 09/11/18 10:20 Urine Glucose (UA) Negative mg/dL (NEGATIVE) 09/11/18 10:20 Urine Ketones Negative mg/dL (NEGATIVE) 09/11/18 10:20 Urine Blood Large (NEGATIVE) H 09/11/18 10:20 Urine Nitrate Negative (NEGATIVE) 09/11/18 10:20 Urine Bilirubin Negative (NEGATIVE) 09/11/18 10:20 Urine Urobilinogen 0.2 E.U./dL (<1 E.U./dL) 09/11/18 10:20 Ur Leukocyte Esterase Trace Giovanna/uL (NEGATIVE) H 09/11/18 10:20 Urine RBC Tntc /hpf (0-2) H 09/11/18 10:20 Urine WBC 5 - 10 /hpf (0-6) H 09/11/18 10:20 Amorphous Sediment Few /hpf (NONE) 09/11/18 10:20 Urine Bacteria Many /hpf (NONE) 09/11/18 10:20 Urine Other Fiber /hpf 09/11/18 10:20 HIV 1&2 Ag/Ab, 4th Gen Nonreactive (Nonreactive) 09/10/18 07:00 - Hospital Course Hospital Course: Sixto Garcia, PGY-1, Internal Medicine Discharge Summary for Dr. Carlton 63 year old male with no relevant past medical history presented with history of back pain which started a few weeks ago. Patient was visiting [place] to visit daughter for Ramadan. Patient had pain in lower back which extended to thighs bilaterally. Patient's pain improved when he leaned forward however was exacerbated with standing. Patient had no bowel/bladder incontinence, saddle anesthesia, numbness/tingling in lower extremities. Upon admission, Lumbar spine CT showed severe degenerative changes, previous laminectomy. Lumbar MRI showed severe facet arthropathy and disc bulging with severe stenosis L2-L3, severe disc degeneration. No evidence of discitis or osteomyeltitis. PanCT showed no acute findings except for large right sided staghorn calculus. UA was negative for nitrate but positive for leukocyte esterase and had 5-10 WBC. Thus, UTI was doubtful. HIV was negative. ESR and CRP were mildly elevated. Patient was afebrile and had no leukocytosis throughout the admission. Patient received vancomycin and zosyn in the ED and was ordered pain medication of flexeril, morphine which he did not use. He was also prescribed lidoderm patch which he used sparingly. As per Dr. Webber, SAMANTHA, no antibiotics were indicated at this time. In addition, as per Dr. Jeffries, he instructed patient to follow up outpatient. Blood pressure was elevated throughout this admission. Patient was initially started on hydrochlorothiazide but as this increases the risk of n ephrolithiasis, patient was switched to norvasc on discharge. Patient was found to be stable and ready for discharge. Patient was told to follow up with primary care doctor within 3-5 days. Patient was told to follow up with Dr. Jeffries for treatment options for staghorn calculus and was given his number on discharge. Patient was told to take all medications as prescribed and return to the emergency department if she had any new or concerning symptoms. Discharge Diagnoses -Discitis -Staghorn calculus - Date & Time of H&P Date of H&P: 09/09/18 Time of H&P: 22:09 Discharge Exam - Head Exam Head Exam: ATRAUMATIC, NORMAL INSPECTION, NORMOCEPHALIC - Eye Exam Eye Exam: EOMI, PERRL - ENT Exam ENT Exam: Mucous Membranes Moist, Normal Exam - Respiratory Exam Respiratory Exam: Clear to PA & Lateral, NORMAL BREATHING PATTERN. absent: Rales, Rhonchi, Wheezes - Cardiovascular Exam Cardiovascular Exam: REGULAR RHYTHM, RRR, +S1, +S2. absent: Clicks, Gallop, Rubs - GI/Abdominal Exam GI & Abdominal Exam: Normal Bowel Sounds, Soft, Tenderness (mild on right lower quadrant). absent: Distended, Firm, Guarding - Extremities Exam Extremities exam: full ROM - Back Exam Back exam: CVA tenderness (R) (mild) - Neurological Exam Neurological exam: Alert, CN II-XII Intact, Oriented x3 - Psychiatric Exam Psychiatric exam: Normal Affect, Normal Mood - Skin Skin Exam: Dry, Intact, Normal Color Discharge Plan - Discharge Medications Prescriptions: amLODIPine [Norvasc] 5 mg PO DAILY 30 Days #30 tab oxyCODONE/Acetaminophen [Percocet 5/325 mg Tab] 1 ea PO Q6 PRN #10 tab PRN Reason: Pain, Severe (8-10) - Follow Up Plan Condition: FAIR Disposition: HOME/ ROUTINE Instructions: Kidney Stones (DC), Renal Colic (DC) Additional Instructions: Please follow up with your primary care doctor within 3-5 days. Please follow up with Dr. Jeffries (CELL [phone]) for further instructions about management of staghorn calculi Please take all medications as prescribed. Please return to the emergency department if you have any new or concerning symptoms. Referrals: Kvng Jeffries MD [Staff Provider] - Salma Manuel MD [Medical Doctor] - <Bianka,Anwar A - Last Filed: 09/12/18 17:31> Provider - Provider Date of Admission: 09/09/18 18:45 Attending physician: Swati Carlton MD Primary care physician: NO PRIMARY CARE PROVIDER Consults: 09/10/18 01:06 Infectious Disease Consult Routine Comment: Consulting Provider: Lobo Webber Consulting Physician: Lobo Webber Reason for Consult: discitis, r/o osteomyelitis 09/11/18 12:13 Physician Consult Routine Comment: Consulting Provider: Kvng Jeffries Consulting Physician: Kvng Jeffries Reason for Consult: right [facility] Hospital Course - Lab Results Lab Results: Micro Results 09/11/18 10:20 Urine Random Urine Culture - Final No Growth (<1,000 CFU/ML) 09/09/18 20:09 Blood Blood Culture - Preliminary NO GROWTH AFTER 48 HOURS 09/09/18 18:54 Blood Blood Culture - Preliminary NO GROWTH AFTER 48 HOURS Most Recent Lab Values WBC 7.9 10^3/uL (4.5-11.0) D 09/12/18 06:30 RBC 4.30 10^6/uL (3.5-6.1) 09/12/18 06:30 Hgb 12.0 g/dL (14.0-18.0) L 09/12/18 06:30 Hct 36.7 % (42.0-52.0) L 09/12/18 06:30 MCV 85.3 fl (80.0-105.0) 09/12/18 06:30 MCH 27.9 pg (25.0-35.0) 09/12/18 06:30 MCHC 32.7 g/dl (31.0-37.0) 09/12/18 06:30 RDW 13.3 % (11.5-14.5) 09/12/18 06:30 Plt Count 243 10^3/uL (120.0-450.0) 09/12/18 06:30 MPV 10.7 fl (7.0-11.0) 09/12/18 06:30 Neut % (Auto) 58.4 % (50.0-68.0) 09/12/18 06:30 Lymph % (Auto) 32.2 % (22.0-35.0) 09/12/18 06:30 Gooding % (Auto) 6.1 % (1.0-6.0) H 09/12/18 06:30 Eos % (Auto) 2.9 % (1.5-5.0) 09/12/18 06:30 Baso % (Auto) 0.4 % (0.0-3.0) 09/12/18 06:30 Lymph # (Auto) 2.5 (1.2-3.4) 09/12/18 06:30 Gooding # (Auto) 0.5 (0.1-0.6) 09/12/18 06:30 Eos # (Auto) 0.2 (0.0-0.7) 09/12/18 06:30 Baso # (Auto) 0.03 K/mm3 (0.0-2.0) 09/12/18 06:30 Absolute Neuts (auto) 4.60 (1.4-6.5) 09/12/18 06:30 ESR 30 mm/hr (0.00-15.0) H 09/09/18 18:54 PT 11.8 SECONDS (9.4-12.5) 09/09/18 18:54 INR 1.06 09/09/18 18:54 APTT 30.7 Seconds (26.9-38.3) 09/09/18 18:54 Sodium 142 mmol/L (132-148) 09/12/18 06:30 Potassium 4.2 mmol/L (3.6-5.0) 09/12/18 06:30 Chloride 104 mmol/L (98-107) 09/12/18 06:30 Carbon Dioxide 30 mmol/L (21-33) 09/12/18 06:30 Anion Gap 11 (10-20) 09/12/18 06:30 BUN 19 mg/dL (7-21) 09/12/18 06:30 Creatinine 1.2 mg/dl (0.8-1.5) 09/12/18 06:30 Est GFR ( Amer) > 60 09/12/18 06:30 Est GFR (Non-Af Amer) > 60 09/12/18 06:30 Random Glucose 108 mg/dL (70-110) 09/12/18 06:30 Calcium 8.6 mg/dL (8.4-10.5) 09/12/18 06:30 Phosphorus 3.1 mg/dL (2.5-4.5) 09/09/18 18:54 Magnesium 2.1 mg/dL (1.7-2.2) 09/09/18 18:54 Total Bilirubin 0.4 mg/dL (0.2-1.3) 09/12/18 06:30 AST 23 U/L (17-59) 09/12/18 06:30 ALT 24 U/L (7-56) 09/12/18 06:30 Alkaline Phosphatase 66 U/L (38-126) 09/12/18 06:30 C-Reactive Protein 11.20 mg/L (0.0-9.9) H 09/10/18 07:00 C-React Prot High Sens 7.54 mg/L (1.00-3.00) H 09/09/18 18:54 Total Protein 6.9 g/dL (5.8-8.3) 09/12/18 06:30 Albumin 3.7 g/dL (3.0-4.8) 09/12/18 06:30 Globulin 3.2 gm/dL 09/12/18 06:30 Albumin/Globulin Ratio 1.1 (1.1-1.8) 09/12/18 06:30 Urine Color Yellow (YELLOW) 09/11/18 10:20 Urine Appearance Sl cloudy (CLEAR) 09/11/18 10:20 Urine pH 6.0 (4.7-8.0) 09/11/18 10:20 Ur Specific Jenkins >= 1.030 (1.005-1.035) 09/11/18 10:20 Urine Protein 30 mg/dL (<30 mg/dL) H 09/11/18 10:20 Urine Glucose (UA) Negative mg/dL (NEGATIVE) 09/11/18 10:20 Urine Ketones Negative mg/dL (NEGATIVE) 09/11/18 10:20 Urine Blood Large (NEGATIVE) H 09/11/18 10:20 Urine Nitrate Negative (NEGATIVE) 09/11/18 10:20 Urine Bilirubin Negative (NEGATIVE) 09/11/18 10:20 Urine Urobilinogen 0.2 E.U./dL (<1 E.U./dL) 09/11/18 10:20 Ur Leukocyte Esterase Trace Giovanna/uL (NEGATIVE) H 09/11/18 10:20 Urine RBC Tntc /hpf (0-2) H 09/11/18 10:20 Urine WBC 5 - 10 /hpf (0-6) H 09/11/18 10:20 Amorphous Sediment Few /hpf (NONE) 09/11/18 10:20 Urine Bacteria Many /hpf (NONE) 09/11/18 10:20 Urine Other Fiber /hpf 09/11/18 10:20 HIV 1&2 Ag/Ab, 4th Gen Nonreactive (Nonreactive) 09/10/18 07:00 Attending/Attestation - Attestation I have personally seen and examined this patient.: Yes I have fully participated in the care of the patient.: Yes I have reviewed all pertinent clinical information, including history, physical exam and plan: Yes Notes (Text): 09/12/18 17:25 63 year old male with no significant past medical history who presented with complaint of back pain. Preliminary CT finding was concerning for possible discitis however official reading showed severe degenerative changes in the lower lumbar spine, previous laminectomy; large staghorn stone in the right kidney without hydronephrosis. This was followed up with MRI which severe facet arthropathy and disc bulging with severe stenosis L2-L3, severe disc degeneration without evidence of discitis or osteomyeltitis. Patient remained afebrile without leukocytosis. He denied UTI symptoms. ID recommended observe off antibiotics. Urology recommended outpatient follow up. Patient is started on norvasc for hypertension. Patient is discharged home to follow up at [facility]. Follow up with urology. Swati Carlton MD Hospitalist.
[2018-09-12 17:24] VITALS: BP 154/80; PULSE 82; RESP 20; TEMP 98.3; O2SAT 98
--- NOTE | 2018-09-12 21:17 | PN ---
DATE: 09/12/2018 SUBJECTIVE: The patient is in bed, in no acute distress. PHYSICAL EXAMINATION VITAL SIGNS: On exam temperature is 98, blood pressure is 150/70 and respiratory rate of 18. HEENT: Unremarkable. NECK: Supple. LUNGS: Decreased breath sounds. HEART: Normal S1 and S2. ABDOMEN: Soft and nontender. LABORATORY DATA: Laboratory examination reveals a white count of 7.9, hemoglobin of 12 and platelets of 243. BUN of 19 and creatinine of 1.2. C-reactive protein is 11 and urinalysis is noted. Serology is noted. Microbiology reveals the blood cultures and urine cultures are negative. ASSESSMENT AND PLAN: This is a 63-year-old male originally from [place] admitted with back pain, questionable vertebral osteomyelitis was seen on CAT scan, now found to have negative MRI for osteo and diskitis; however, did have a staghorn calculus. Urology evaluation, the patient does not need any antibiotics. Blood cultures negative. Urine cultures negative. Urinalysis significant with too numerous to count RBCs with only 5 to 10 WBCs. The patient is human immunodeficiency virus is negative. The patient to see Urology. Lobo Webber MD
== END 2018-09-12 19:20 | disposition home or self-care (01) | DRG 347 ==
LOC: ED 14:55 → ERH 18:45 → 3RSO 21:31
PROVIDERS: ADMIT Internal Medicine; ATTEND Internal Medicine
DX: M46.46 Discitis, unspecified, lumbar region (principal); Z68.41 Body mass index [BMI] 40.0-44.9, adult; I10 Essential (primary) hypertension; M48.061 Spinal stenosis, lumbar region without neurogenic claudication; N20.0 Calculus of kidney; E66.01 Morbid (severe) obesity due to excess calories